=== PATIENT | female | born 1990 | race African-American/Black ===

== ENCOUNTER 2018-04-20 01:26 | Emergency (ER) | payer OTHER ==
[2018-04-20 02:21] VITALS: BMI 25.1
--- NOTE | 2018-04-20 03:09 | PDOC ---
History of Present Illness <Lucas Nuñez - Last Filed: 04/20/18 06:58> - General History Source: Patient - History of Present Illness Initial Comments: 04/20/18 04:13 27 year old female with acute onset of R sided abdominal pain that radiates to her flank. Pain is 10/10, constant, sharp without any identifiable triggering or relieving factors. Denies associated fevers/chills, dysuria/hematuria, diarrhea/constipation. Last BM was prior to presentation and was normal. Patient tolerating PO intake however notes decreased appetite 2/2 to symptoms. Denies any previous instances of similar pain. LMP was February 2018, notes her menstrual cycle are fairly regular, however she has not had a menstrual cycle in > 6 weeks. Patient's home test last week was negative. Patient denies chest pain, shortness of breath, recent travel or sick contacts. NKDA Surgical: denies Social: denies toxic habits PMD: Dr. Mcdonnell As per EMR patient has not been evaluated in our ED on prior occasion. <Danna Brody - Last Filed: 04/20/18 07:07> - General Chief Complaint: Pain Stated Complaint: KIDNEY PAIN Time Seen by Provider: 04/20/18 02:19 Past History <Lucas Nuñez - Last Filed: 04/20/18 06:58> - Suicide/Smoking/Psychosocial Hx Smoking History: Never smoked Have you smoked in the past 12 months: No Information on smoking cessation initiated: No Hx Alcohol Use: No Drug/Substance Use Hx: No <Danna Brody - Last Filed: 04/20/18 07:07> - Past Medical History Allergies/Adverse Reactions: Allergies Allergy/AdvReac Type Severity Reaction Status Date / Time No Known Allergies Allergy Verified 04/20/18 02:20 Home Medications: Ambulatory Orders NK [No Known Home Medication] 04/20/18 Review of Systems - Review of Systems Constitutional: No: Chills, Fever HEENTM: No: Blurred Vision, Double Vision Respiratory: No: Cough, Shortness of Breath Cardiac (ROS): No: Chest Pain, Lightheadedness, Palpitations, Syncope ABD/GI: Yes: Abdominal cramping. No: Constipated, Diarrhea, Nausea, Vomiting : No: Burning, Dysuria <Mary Grace,Danna - Last Filed: 04/20/18 07:07> *Physical Exam - Vital Signs Last Vital Signs Temp Pulse Resp BP Pulse Ox 97.9 F 64 18 107/72 99 04/20/18 01:45 04/20/18 01:45 04/20/18 01:45 04/20/18 01:45 04/20/18 01:45 <Lucas Nuñez - Last Filed: 04/20/18 06:58> - Vital Signs Last Vital Signs Temp Pulse Resp BP Pulse Ox 97.9 F 64 18 107/72 99 04/20/18 01:45 04/20/18 01:45 04/20/18 01:45 04/20/18 01:45 04/20/18 01:45 - Physical Exam General Appearance: Yes: Nourished, Appropriately Dressed HEENT: positive: Normal Voice, Hearing Grossly Normal Neck: positive: Trachea midline, Supple Respiratory/Chest: positive: Lungs Clear, Normal Breath Sounds Cardiovascular: positive: Regular Rate. negative: Edema, JVD, Murmur Gastrointestinal/Abdominal: positive: Soft, Tenderness (RUQ TTP, (+) Lance's sign). negative: Guarding, Rebound, Hernia, Mass Musculoskeletal: positive: CVA Tenderness (R). negative: CVA Tenderness (L) Extremity: positive: Normal Capillary Refill, Normal Inspection Integumentary: positive: Normal Color, Dry, Warm Neurologic: positive: Fully Oriented, Alert <Danna Brody - Last Filed: 04/20/18 07:07> ED Treatment Course - LABORATORY CBC & Chemistry Diagram: 04/20/18 03:00 04/20/18 03:00 - ADDITIONAL ORDERS Additional order review: Laboratory Results 04/20/18 04/20/18 03:00 03:00 Sodium 138 Potassium 4.5 Chloride 102 Carbon Dioxide 31 Anion Gap 5 L BUN 15 Creatinine 0.9 Creat Clearance w eGFR > 60 Random Glucose 122 H Calcium 9.5 Total Bilirubin 0.2 AST 17 ALT 21 Alkaline Phosphatase 74 Total Protein 7.7 Albumin 4.2 Urine Color Straw Urine Appearance Clear Urine pH 6.0 Ur Specific [place] 1.018 Urine Protein Negative Urine Glucose (UA) Negative Urine Ketones Negative Urine Blood Negative Urine Nitrite Negative Urine Bilirubin Negative Urine Urobilinogen Negative Ur Leukocyte Esterase Negative Urine HCG, Qual Negative 04/20/18 03:00 RBC 4.30 MCV 87.4 MCHC 33.1 RDW 13.4 MPV 7.4 L Neutrophils % 50.6 Lymphocytes % 40.3 H Monocytes % 6.0 Eosinophils % 2.4 Basophils % 0.7 - Medications Given in the ED: ED Medications Discontinued Medications Generic Name Dose Route Start Last Admin Trade Name Veena PRN Reason Stop Dose Admin Sodium Chloride 1,000 mls @ 1,000 mls/hr 04/20/18 04:03 04/20/18 04:03 Normal Saline - IV 04/20/18 05:02 1,000 mls/hr ASDIR ONE Administration Ketorolac Tromethamine 30 mg 04/20/18 03:24 04/20/18 03:59 Toradol Injection - IVPUSH 04/20/18 03:25 30 mg ONCE ONE Administration <Lucas Nuñez - Last Filed: 04/20/18 06:58> - LABORATORY CBC & Chemistry Diagram: 04/20/18 03:00 04/20/18 03:00 <Danna Bordy - Last Filed: 04/20/18 07:07> Medical Decision Making - Medical Decision Making 04/20/18 04:13 27 year old female with RUQ pain that radiates to her R flank. PE significant for (+) Lance's sign. Frontal diagnosis: Cholecystitis, early appendicitis, UTI/cystitis, less likely pyelonephritis, also possibly nephrolithiasis. Will obtain basic labs, bedside U/S. Reassess 04/20/18 04:59 Bedside U/S shows no hydronephrosis. No stones, however GB poorly visualized. Will obtain formal U/S to r/o cholecystis. Patient resting, however remains in pain. Toradol for pain control. Reassess. 04/20/18 05:05 CBC, CMP unremarkable. UA clean. Patient counseled on plan of care. 04/20/18 07:01 Patient signed out to Dr. Garza (Resident) and Dr. Damian (Attending). <Danna Brody - Last Filed: 04/20/18 07:07> *DC/Admit/Observation/Transfer <Lucas Nuñez - Last Filed: 04/20/18 06:58> <Danna Brody - Last Filed: 04/20/18 07:07> Diagnosis at time of Disposition: Abdominal pain - Referrals Referrals: Mami Mcdonnell [Primary Care Provider] -
--- NOTE | 2018-04-20 03:11 | PDOC ---
Attending Attestation - HPI HPI: 04/20/18 03:11 The patient is a 27 year old female, with a significant past medical history of PCOS, who presents to the emergency department with, acute onset right upper quadrant pain radiating to her back. Her last menses was in February and her menses is usually normal. She denies recent fevers, chills, headache or dizziness. She denies recent nausea, vomit, diarrhea or constipation. She denies recent dysuria, frequency, urgency or hematuria. She denies recent chest pain or shortness of breath. Allergies: NKA Past surgical history: None reported. Social history: Nonsmoker. Denies EtOH use and recreational drug use. <CesartieranarcisoHenok - Last Filed: 04/20/18 03:11> - Resident Resident Name: Danna Brody - ED Attending Attestation I have performed the following: I have examined & evaluated the patient, The case was reviewed & discussed with the resident, I agree w/resident's findings & plan, Exceptions are as noted - Physicial Exam PE: 04/20/18 06:58 *Physical Exam General Appearance: Yes: Appropriately Dressed. No: Apparent Distress, Intoxicated HEENT: positive: EOMI, GRACIELA, Normal ENT Inspection, Normal Voice, TMs Normal, Pharynx Normal. negative: Pale Conjunctivae, Photophobia, Scleral Icterus (R), Scleral Icterus (L) Neck: positive: Trachea midline, Normal Thyroid, Supple. negative: Tender, Rigid, Carotid bruit, Stridor, Lymphadenopathy (R), Lymphadenopathy (L), Thyromegaly Respiratory/Chest: positive: Lungs Clear, Normal Breath Sounds. negative: Chest Tender, Respiratory Distress, Accessory Muscle Use, Labored Respiration, RES, Crackles, Rales, Rhonchi, Stridor, Wheezing, Dullness Cardiovascular: positive: Regular Rhythm, Regular Rate, S1, S2. negative: Edema , JVD, Murmur, Bradycardia, Tachycardia Vascular Pulses: Dorsalis-Pedis (R): 2+, Doralis-Pedis (L): 2+ Gastrointestinal/Abdominal: positive: Normal Bowel Sounds, Flat, Soft. + RUQ tenderness , Organomegaly, Pulsatile Mass, Increased Bowel Sounds, Decreased BS , Distended, Guarding, Rebound, Hernia, Hepatomegaly, Spleenomegaly Lymphatic: negative: Adenopathy, Tenderness Musculoskeletal: positive: Normal Inspection. + right CVA tenderness negative: Decreased Range of Motion Extremity: positive: Normal Capillary Refill, Normal Inspection, Normal Range of Motion, Pelvis Stable. negative: Tender, Pedal Edema, Swelling, Erythema Integumentary: positive: Normal Color, Dry, Warm. negative: Cyanotic, Erythema , Jaundice, Rash Neurologic: positive: feed preparation operator II-XII NML intact, Fully Oriented, Alert, Normal Mood/ Affect, Motor Strength 5/5. negative: EOM Palsy, Facial Droop, Sensory Deficit - Medical Decision Making 04/20/18 19:31 patient was treated and released <Lucas Nuñez - Last Filed: 04/20/18 19:31> Attestations - Attestations 04/20/18 03:12 Documentation prepared by Henok Chandler, acting as biomedical repair technician for Lucas Nuñez DO. <Henok Chandler - Last Filed: 04/20/18 03:11>
[2018-04-20 03:15] LABS: BASO % 0.7 % (0-2.0); EOS % 2.4 % (0-4.5); HEMATOCRIT 37.6 % (32.4-45.2); HEMOGLOBIN 12.4 GM/dL (10.7-15.3); LYMPH % 40.3 % (8-40); MCH 28.9 pg (25.7-33.7); MCHC 33.1 g/dl (32.0-36.0); MEAN CELL VOLUME 87.4 fl (80-96); MEAN PLT VOLUME 7.4 fl (7.5-11.1); NEUT % 50.6 % (42.8-82.8); PLATELET COUNT 272 K/MM3 (134-434); RDW 13.4 % (11.6-15.6); WHITE BLOOD COUNT 7.9 K/mm3 (4.0-10.0)
[2018-04-20 03:16] LABS: URINE APPEARANCE CLEAR; URINE BILIRUBIN NEGATIVE (<2.0 mg/dL); URINE COLOR STRAW; URINE GLUCOSE (UA) NEGATIVE (NEGATIVE); URINE KETONE NEGATIVE (NEGATIVE); URINE LEUK ESTERASE NEGATIVE (NEGATIVE); URINE NITRITE NEGATIVE (NEGATIVE); URINE PROTEIN NEGATIVE (NEGATIVE); URINE UROBILINOGEN NEGATIVE mg/dL (0.2-1.0)
[2018-04-20] MEDS ORDERED: KETOROLAC TROMETHAMINE 30 MG/1 ML VIAL IVPUSH ONE (03:24)
[2018-04-20 03:36] LABS: ALBUMIN 4.2 g/dl (3.4-5.0); ALK PHOS 74 U/L (45-117); ANION GAP 5 (8-16); BILIRUBIN,TOTAL 0.2 mg/dL (0.2-1.0); BLOOD UREA NITROGEN 15 mg/dL (7-18); CALCIUM 9.5 mg/dL (8.5-10.1); CHLORIDE 102 mmol/L (98-107); CO2 31 mmol/L (21-32); CREATININE 0.9 mg/dL (0.55-1.02); GLUCOSE,RANDOM 122 mg/dL (74-106); POTASSIUM 4.5 mmol/L (3.5-5.1); SGOT/AST 17 U/L (15-37); SGPT/ALT 21 U/L (12-78); SODIUM 138 mmol/L (136-145); TOT PROT 7.7 g/dl (6.4-8.2)
[2018-04-20 03:46] LABS: HCG,QUALITATIVE URINE NEGATIVE
[2018-04-20] MEDS ORDERED: KETOROLAC TROMETHAMINE 30 MG/1 ML VIAL ONE (03:51)
[2018-04-20] MEDS ORDERED: SODIUM CHLORIDE 1,000 ML IV ONE (04:03)
--- NOTE | 2018-04-20 07:10 | PDOC ---
*Physical Exam - Vital Signs Last Vital Signs Temp Pulse Resp BP Pulse Ox 97.9 F 64 18 107/72 99 04/20/18 01:45 04/20/18 01:45 04/20/18 01:45 04/20/18 01:45 04/20/18 01:45 - Physical Exam Comments: 04/20/18 07:10 sign out received from Dr. Brody 27F presents to the ER with right sided abdominal pain radiating to right side. Patient seen and examined at bedside RRR CTAB Soft tender RUQ and RLQ slight CVA tenderness of right no extremity edema ED Treatment Course - LABORATORY CBC & Chemistry Diagram: 04/20/18 03:00 04/20/18 03:00 - ADDITIONAL ORDERS Additional order review: Laboratory Results 04/20/18 04/20/18 03:00 03:00 Sodium 138 Potassium 4.5 Chloride 102 Carbon Dioxide 31 Anion Gap 5 L BUN 15 Creatinine 0.9 Creat Clearance w eGFR > 60 Random Glucose 122 H Calcium 9.5 Total Bilirubin 0.2 AST 17 ALT 21 Alkaline Phosphatase 74 Total Protein 7.7 Albumin 4.2 Urine Color Straw Urine Appearance Clear Urine pH 6.0 Ur Specific [place] 1.018 Urine Protein Negative Urine Glucose (UA) Negative Urine Ketones Negative Urine Blood Negative Urine Nitrite Negative Urine Bilirubin Negative Urine Urobilinogen Negative Ur Leukocyte Esterase Negative Urine HCG, Qual Negative 04/20/18 03:00 RBC 4.30 MCV 87.4 MCHC 33.1 RDW 13.4 MPV 7.4 L Neutrophils % 50.6 Lymphocytes % 40.3 H Monocytes % 6.0 Eosinophils % 2.4 Basophils % 0.7 - Medications Given in the ED: ED Medications Discontinued Medications Generic Name Dose Route Start Last Admin Trade Name Freq PRN Reason Stop Dose Admin Sodium Chloride 1,000 mls @ 1,000 mls/hr 04/20/18 04:03 04/20/18 04:03 Normal Saline - IV 04/20/18 05:02 1,000 mls/hr ASDIR ONE Administration Ketorolac Tromethamine 30 mg 04/20/18 03:24 04/20/18 03:59 Toradol Injection - IVPUSH 04/20/18 03:25 30 mg ONCE ONE Administration Medical Decision Making - Medical Decision Making 04/20/18 07:12 pending abdominal ultrasound if negative will likely discharge home 04/20/18 10:58 labs reviewed. no acute pathology noted on labs lipase added and WNL Ultrasound is unremarkable Will discharge with PMD and GI follow up *DC/Admit/Observation/Transfer Diagnosis at time of Disposition: Abdominal pain Qualifiers: Abdominal location: epigastric Qualified Code(s): R10.13 - Epigastric pain - Discharge Dispostion Disposition: HOME Condition at time of disposition: Improved Decision to Admit order: No - Prescriptions Prescriptions: Famotidine [Pepcid -] 20 mg PO DAILY #30 tablet - Referrals Referrals: Michael Winston MD [Staff Physician] - 24 hours (GI doctor call for appointment as soon as possible) Kali Landrum MD [Staff Physician] - (GI Call [facility]) Ge Brown MD [Staff Physician] - (GI doctor call [facility]) Rosendo Garza RES [Emergency Midlevel Provider] - (call [phone] for appointment if you need a primary care doctor. I see patient at [address] [facility] floor on from 1-430pm) Mami Mcdonnell [Primary Care Provider] - 24 hours (call today for appointment ) Ethel Mclaughlin MD [Staff Physician] - (please call [facility] to guevara appointment with this kidney doctor) - Patient Instructions Printed Discharge Instructions: DI for Flank Pain Additional Instructions: if you have worsening abdominal pain associated with nausea or vomiting fevers or chills call your primary care doctor or go to the nearest emergency room. - Post Discharge Activity Forms/Work/School Notes: Back to Work
[2018-04-20 10:18] LABS: LIPASE 324 U/L (73-393)
[2018-04-20 10:50] VITALS: BP 105/69; PULSE 82; TEMP 98.1
== END 2018-04-20 11:40 | disposition home or self-care (01) ==
LOC: JER 01:26
PROC: 3E0333Z Introduction of Anti-inflammatory into Peripheral Vein, Percutaneous Approach (ICD-10-PCS; principal; 2018-04-20)
PROC: 3E0337Z Introduction of Electrolytic and Water Balance Substance into Peripheral Vein, Percutaneous Approach (ICD-10-PCS; 2018-04-20)
DX: R10.9 Unspecified abdominal pain (principal)
CPT/HCPCS: 36415; 76705-TC; 80053; 81003; 83690; 84703; 85025; 87086; 99283-25; J7030